=== PATIENT | female | born 2000 | race African-American/Black ===

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

== ENCOUNTER 2018-11-11 12:02 | Emergency (ER) | payer OTHER ==
[~2018-11-11] VITALS: Ht 157.5 cm; Wt 54.4 kg
[~2018-11-11 12:02] MED LIST changes: +MACROBID 100 M100 M1 PO; +ZOFRAN ODT4 MG PO
[2018-11-11 12:58] LABS: URINE BILIRUBIN NEGATIVE (Negative); URINE BLOOD NEGATIVE (Negative); URINE CLARITY SL CLOUDY; URINE COLOR YELLOW; URINE GLUCOSE-RANDOM* NEGATIVE (Negative); URINE KETONES TRACE (Negative); URINE LEUKOCYTES-REFLEX NEGATIVE (Negative); URINE PROTEIN (DIPSTICK) TRACE (Negative); URINE SPECIFIC GRAVITY >= 1.030 (1.005-1.035); URINE UROBILINOGEN 0.2 E.U./dl (0.2-1.0)
[2018-11-11 12:59] LABS: URINE NITRITE-REFLEX POSITIVE (Negative)
[2018-11-11 13:06] LABS: AMORPHOUS URATES Moderate /LPF (None Seen); CASTS None Seen /LPF (None Seen); SQUAMOUS >10 Many /LPF (0-3); TRANSITIONAL EPITHEL CELL 0-3 Few /LPF (None Seen)
[2018-11-11 13:07] LABS: AMP/METHAMP POSITIVE (Negative); BARBITURATES Negative (Negative); BENZODIAZEPINES Negative (Negative); COCAINE POSITIVE (Negative); METHADONE Negative (Negative); OPIATES POSITIVE (Negative); PCP Negative (Negative); URINE RBC 0-2 Rare /HPF (0-2); URINE WBC-REFLEX 0-5 Rare /HPF (0-5)
[2018-11-11 13:40] VITALS: BP 120/84
== END 2018-11-11 13:41 | disposition home or self-care (01) ==
LOC: ER 12:02
PROVIDERS: Emergency Medicine
DX: F15.159 Other stimulant abuse with stimulant-induced psychotic disorder, unspecified (principal); F41.9 Anxiety disorder, unspecified

== ENCOUNTER 2019-03-21 17:07 | Emergency (ER) | payer OTHER ==
[~2019-03-21] VITALS: Ht 154.9 cm; Wt 55.3 kg
[2019-03-21 17:08] VITALS: BP 130/46
== END 2019-03-21 17:35 | disposition home or self-care (01) ==
LOC: ER 17:07
DX: O26.892 Other specified pregnancy related conditions, second trimester (principal); H72.92 Unspecified perforation of tympanic membrane, left ear; H61.21 Impacted cerumen, right ear; Z3A.16 16 weeks gestation of pregnancy

== ENCOUNTER 2019-10-29 00:12 | Emergency (ER) | payer OTHER ==
[~2019-10-29] VITALS: Ht 154.9 cm; Wt 54.4 kg
[2019-10-29 00:15] VITALS: BP 126/76
[2019-10-29 00:49] LABS: HEMATOCRIT 41.8 % (37.0-47.0); HEMOGLOBIN 13.9 gm/dL (12.0-15.0); MCH 31.1 pg (26.0-34.0); MCHC 33.2 g/dL (28.0-37.0); MCV 93.6 fL (80.0-100.0); PLATELET COUNT 425 thou/uL (150-400); RBC 4.46 mil/uL (4.20-5.00); RDW 13.4 % (10.5-14.5); WBC 20.3 thou/uL (4.0-11.0)
[2019-10-29 00:55] LABS: CREATININE 1.1 mg/dL (0.6-1.0); POTASSIUM 3.1 mmol/L (3.5-5.1)
[2019-10-29 01:25] LABS: ABSOLUTE NEUTROPHILS 11.2 thou/uL (1.4-8.2)
[2019-10-29 01:26] LABS: PLATELET ESTIMATE INCREASED
== END 2019-10-29 01:23 | disposition home or self-care (01) ==
LOC: ER 00:12
PROVIDERS: Emergency Medicine
DX: K42.9 Umbilical hernia without obstruction or gangrene (principal); D72.829 Elevated white blood cell count, unspecified

== ENCOUNTER 2020-02-07 16:05 | Emergency (ER) | payer OTHER ==
[~2020-02-07] VITALS: Ht 154.9 cm; Wt 57.1 kg
[2020-02-07] MEDS ORDERED: OCUFLOX5 ML OTIC (17:18)
[2020-02-07 17:38] VITALS: BP 128/79
== END 2020-02-07 17:50 | disposition home or self-care (01) ==
LOC: ER 16:05
DX: H60.91 Unspecified otitis externa, right ear (principal); R51 Headache; R53.83 Other fatigue